=== PATIENT | female | born 1980 | race Caucasian/White ===

== ENCOUNTER → 2016-08-03 | Outpatient (CLI) | payer BC ==
[2016-08-03 10:36] LABS: Creatine Kinase MB 0.8 ng/mL (0.0-2.4); Troponin I <0.012 ng/mL (0.000-0.034)
== END | disposition home or self-care (01) ==
LOC: LABWHC1 09:35
PROVIDERS: ATTEND Physician Assistant
DX: R07.89 Other chest pain (principal)
CPT/HCPCS: 36415; 82550; 82553; 84484

== ENCOUNTER → 2017-04-27 | Outpatient (CLI) | payer BC ==
--- NOTE | 2017-04-28 07:09 | US ---
EXAMINATION TYPE: US thyroid st tissue head/neck DATE OF EXAM: 04/27/2017 COMPARISON: US of 2014 and 2013 CLINICAL HISTORY: E04.2 multinodular goiter. GLAND SIZE: Right Lobe: 5.1 x 1.9 x 1.6 cm Overall Parenchyma: heterogenous Left Lobe: 5.1 x 1.7 x 1.5 cm Overall Parenchyma: heterogeneous Isthmus Thickness: 0.6 cm NODULES RIGHT: # of nodules measured on right: 1 1. 1.4 X 0.8 x 1.1 cm isoechoic solid nodule at the mid pole with well-defined margins; . This nod ule is wider than tall and shows intranodular vascularity. Prior size: 1.4 x 1.0 x 1.0 cm LEFT: # of nodules measured on left: 0 ISTHMUS: # of nodules measured in the isthmus: 0 Bilateral neck scanned, no evidence of lymphadenopathy. There is diffuse glandular heterogeneity and hypervascularity. IMPRESSION: Findings again suggestive of uninodular thyroid goiter with stability of the 1.4 cm right isoechoic t hyroid nodule dating back to 2013. This can be considered benign. Hypervascularity could also relate to thyroiditis. Correlate with serum laboratory values.
== END | disposition home or self-care (01) ==
LOC: RADUSWWP 16:47
PROVIDERS: ATTEND Family Medicine
DX: E04.1 Nontoxic single thyroid nodule (principal)
CPT/HCPCS: 76536

== ENCOUNTER → 2018-03-18 | Outpatient (CLI) | payer BC ==
--- NOTE | 2018-03-18 15:32 | US ---
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 Thyroid nodules, on thyroid meds, history of FNA GLAND SIZE: Right Lobe: 4.9 x 2.1 x 1.8 cm Overall Parenchyma: heterogenous Left Lobe: 5.0 x 1.5 x 1.4 cm Overall Parenchyma: heterogeneous Isthmus Thickness: 0.7 cm NODULES RIGHT: # of nodules measured on right: 1 1. 1.5 X 1.0 x 1.2 cm isoechoic solid nodule at the mid pole with well-defined margins. This nodule is wider than tall and shows intranodular vascularity. Prior size: 1.4 x 0.8 x 1.1 cm LEFT: # of nodules measured on left: 0 ISTHMUS: # of nodules measured in the isthmus: 0 Bilateral neck scanned, no evidence of lymphadenopathy. Heterogeneous thyroid gland measures upper limits of normal in size with stable 1.5 cm isoechoic post erior solid right-sided thyroid nodule. IMPRESSION: Overall stable findings, no new suspicious greater than 1 cm nodules are seen.
== END ==
LOC: RADUSWWP 14:56
PROVIDERS: ATTEND Family Medicine
DX: E04.1 Nontoxic single thyroid nodule (principal)
CPT/HCPCS: 76536

== ENCOUNTER 2018-04-26 13:38 | Emergency (ER) | payer BC ==
[2018-04-26 13:43] VITALS: RESP 18; TEMP 98.6
[2018-04-26] MEDS ORDERED: KETOROLAC 30 MG/ML 1 ML VIAL IVP STA (13:51)
[2018-04-26] MEDS ORDERED: SODIUM CHLORIDE 0.9% 1,000 ML IV STA (13:51)
--- NOTE | 2018-04-26 13:54 | ED ---
Chest Pain HPI - General Chief Complaint: Chest Pain Stated Complaint: Chest Pain,SOB Time Seen by Provider: 04/26/18 13:45 Source: patient, RN notes reviewed Mode of arrival: ambulatory Limitations: no limitations - History of Present Illness Initial Comments: This is a 36-year-old female with a benign past medical history who states she had the onset of coughing last night he started developing some right upper back pain this intense 7/10 severity increases with deep breathing or movements. No overt fevers chills sweats no phlegm production. She does have some shortness of breath with it. She is a nonsmoker she has of a family history of a maternal aunt that had a heart attack in her 30s. No other personal history of that her herself she is a smoker marijuana occasionally she states. Currently no other modifying factors. MD Complaint: chest pain, other - Related Data Home Medications Medication Instructions Recorded Confirmed Ergocalciferol [Vitamin D2] 50,000 unit PO SA 04/26/18 04/26/18 Levothyroxine Sodium [Levoxyl] 100 mcg PO DAILY 04/26/18 04/26/18 Phentermine HCl [Adipex-P] 37.5 mg PO DAILY 04/26/18 04/26/18 Previous Rx's Medication Instructions Recorded Benzonatate [Tessalon Perles] 100 mg PO TID #21 cap 04/26/18 Ibuprofen [Motrin] 600 mg PO Q6HR PRN #20 tab 04/26/18 Allergies Allergy/AdvReac Type Severity Reaction Status Date / Time No Known Allergies Allergy Verified 04/26/18 13:58 Review of Systems ROS Statement: Those systems with pertinent positive or pertinent negative responses have been documented in the HPI. ROS Other: All systems not noted in ROS Statement are negative. Past Medical History Past Medical History: Thyroid Disorder History of Any Multi-Drug Resistant Organisms: None Reported Past Surgical History: Tubal Ligation Past Anesthesia/Blood Transfusion Reactions: No Reported Reaction Smoking Status: Never smoker Past Alcohol Use History: Occasional Past Drug Use History: None Reported - Past Family History Mother Family Medical History: No Reported History General Exam - General Exam Comments Initial Comments: This is a well-developed well-nourished awake alert oriented 3 female Limitations: no limitations General appearance: alert, anxious Head exam: Present: atraumatic, normocephalic, normal inspection Eye exam: Present: normal appearance, PERRL, EOMI. Absent: scleral icterus, conjunctival injection, periorbital swelling ENT exam: Present: normal exam, mucous membranes moist Neck exam: Present: normal inspection, full ROM, other (No stridor JVD or bruits ). Absent: tenderness, meningismus, lymphadenopathy Respiratory exam: Present: normal lung sounds bilaterally. Absent: respiratory distress, wheezes, rales, rhonchi, stridor, chest wall tenderness Cardiovascular Exam: Present: regular rate, normal rhythm, normal heart sounds. Absent: systolic murmur, diastolic murmur, rubs, gallop, clicks GI/Abdominal exam: Present: soft, normal bowel sounds. Absent: distended, tenderness, guarding, rebound, rigid, bruit, pulsatile mass Extremities exam: Present: normal inspection, full ROM, normal capillary refill. Absent: tenderness, pedal edema, joint swelling, calf tenderness Back exam: Present: normal inspection Neurological exam: Present: alert, oriented X3, CN II-XII intact Psychiatric exam: Present: normal affect, normal mood Skin exam: Present: warm, dry, intact, normal color. Absent: rash Course Vital Signs 04/26/18 13:40 Temperature 98.6 F Pulse Rate 89 Respiratory 18 Rate Blood Pressure 126/72 O2 Sat by Pulse 97 Oximetry Chest Pain MDM - MDM Patient is feeling improved after the medication was rendered. The x-rays are negative for acute findings. The current presentation is consistent with musculoskeletal back and chest pain. She also has evidence of bronchitis. She' ll be placed on appropriate medication follow-up with her doctor return when necessary I did discuss this with patient and her . Disposition Clinical Impression: Chest wall syndrome, Bronchitis Disposition: HOME SELF-CARE Condition: Good Instructions: Acute Bronchitis (ED), Thoracic Pain (ED) Prescriptions: Benzonatate [Tessalon Perles] 100 mg PO TID #21 cap Ibuprofen [Motrin] 600 mg PO Q6HR PRN #20 tab PRN Reason: Pain Is patient prescribed a controlled substance at d/c from ED?: No Referrals: Jairo Torre MD [Primary Care Provider] - 1-2 days
[2018-04-26 14:07] LABS: Basophils % (A) 0 %; Eosinophils # (A) 0.8 k/uL (0-0.7); Eosinophils % (A) 6 %; HCT 42.6 % (34.0-46.0); HGB 14.5 gm/dL (11.4-16.0); Lymphocytes # (A) 2.2 k/uL (1.0-4.8); Lymphocytes % (A) 15 %; MCH 30.9 pg (25.0-35.0); MCHC 34.1 g/dL (31.0-37.0); MCV 90.6 fL (80.0-100.0); Mean Platelet Volume 7.5; Monocytes # (A) 0.7 k/uL (0-1.0); Monocytes % (A) 5 %; Neutrophils # (A) 10.6 k/uL (1.3-7.7); Neutrophils % (A) 73 %; Platelet Count 299 k/uL (150-450); RBC 4.71 m/uL (3.80-5.40); RDW 12.9 % (11.5-15.5); WBC 14.7 k/uL (3.8-10.6)
[2018-04-26 14:16] LABS: ALT 24 U/L (9-52); AST 18 U/L (14-36); Albumin 4.9 g/dL (3.5-5.0); Alkaline Phosphatase 84 U/L (38-126); Anion Gap 11 mmol/L; Blood Urea Nitrogen 7 mg/dL (7-17); Calcium 10.4 mg/dL (8.4-10.2); Carbon Dioxide 24 mmol/L (22-30); Chloride 107 mmol/L (98-107); Glucose 107 mg/dL (74-99); Magnesium 1.7 mg/dL (1.6-2.3); Potassium 3.8 mmol/L (3.5-5.1); Sodium 142 mmol/L (137-145); Total Bilirubin 0.7 mg/dL (0.2-1.3)
--- NOTE | 2018-04-26 14:24 | XR ---
EXAMINATION TYPE: XR chest 2V DATE OF EXAM: 04/26/2018 COMPARISON: NONE HISTORY: Chest pain TECHNIQUE: Frontal and lateral views of the chest are obtained. FINDINGS: Heart and mediastinum are normal. Lungs are clear. Diaphragm is normal. Bony thorax appear s normal. There are chest leads. IMPRESSION: Normal chest
[2018-04-26 14:27] LABS: Creatine Kinase 83 U/L (30-135)
[2018-04-26 14:33] LABS: D-Dimer 0.36 mg/L FEU (<0.60); INR 0.9 (<1.2); Partial Thromboplastin Time 25.7 sec (22.0-30.0)
[2018-04-26 14:41] LABS: Creatine Kinase MB 1.8 ng/mL (0.0-2.4); Troponin I <0.012 ng/mL (0.000-0.034)
[2018-04-26] MEDS ORDERED: BENZONATATE 100 MG CAP PO STA (15:16)
[2018-04-26 15:40] VITALS: BP 116/68; PULSE 88
== END 2018-04-26 15:35 | disposition home or self-care (01) ==
LOC: EC 13:38
DX: R07.1 Chest pain on breathing (principal); J40 Bronchitis, not specified as acute or chronic; E07.9 Disorder of thyroid, unspecified; Z79.899 Other long term (current) drug therapy; Z82.49 Family history of ischemic heart disease and other diseases of the circulatory system
CPT/HCPCS: 36415; 93005; 85379; 83880; 80053; 82550; 82553; 83735; 84484; 85025; 85610; 85730; 71046; 99285; 96374; 96361; J1885

== ENCOUNTER → 2019-04-03 | Outpatient (CLI) | payer BC ==
--- NOTE | 2019-04-03 15:58 | US ---
EXAMINATION TYPE: US thyroid st tissue head/neck DATE OF EXAM: 04/03/2019 COMPARISON: Thyroid ultrasound March 18, 2018 and older studies CLINICAL HISTORY: E03.9 hyperthyroidism, R53.83 fatigue. follow up GLAND SIZE: Right Lobe: 4.9 x 1.8 x 1.4 cm Overall Parenchyma: heterogenous Left Lobe: 5.1 x 1.7 x 1.3 cm Overall Parenchyma: heterogeneous Isthmus Thickness: 0.5 cm NODULES RIGHT: # of nodules measured on right: 1 1. 1.1 X 1.0 x 0.9 cm isoechoic solid nodule at the lower pole with well-defined margins; . This n odule is wider than tall and shows intranodular vascularity. Prior size: 1.5 x 1.0 x 1.2 cm LEFT: # of nodules measured on left: 0 ISTHMUS: # of nodules measured in the isthmus: 0 Bilateral neck scanned, no evidence of lymphadenopathy. Heterogeneous normal-sized thyroid with fairly stable right-sided isoechoic nodule. No new nodules ar e seen. IMPRESSION: Overall stable findings.
== END | disposition home or self-care (01) ==
LOC: RADUSWWP 15:31
PROVIDERS: ATTEND Family Medicine
DX: E03.9 Hypothyroidism, unspecified (principal); E04.9 Nontoxic goiter, unspecified
CPT/HCPCS: 76536

== ENCOUNTER → 2020-01-26 | Outpatient (CLI) | payer BC ==
--- NOTE | 2020-01-26 12:13 | US ---
EXAMINATION TYPE: US thyroid st tissue head/neck DATE OF EXAM: 01/26/2020 COMPARISON: 04/03/2019 CLINICAL HISTORY: R22.1 Mass and lump of neck. GLAND SIZE: Right Lobe: 4.1 x 1.2 x 1.3 cm Overall Parenchyma: grossly heterogenous Left Lobe: 5.3 x 1.1 x 1.3 cm Overall Parenchyma: grossly heterogenous Isthmus Thickness: 0.4 cm NODULES RIGHT: # of nodules measured on right: 0. Previous lower pole 1 cm nodule may be present currently estimated at 1.1 x 0.7 cm which is stable. LEFT: # of nodules measured on left: 0 ISTHMUS: # of nodules measured in the isthmus: 0 Bilateral neck scanned, no evidence of lymphadenopathy. Lateral neck scanned for masses, no evident masses. IMPRESSION: Heterogenous thyroid gland. No suspicious interval changes.
== END | disposition home or self-care (01) ==
LOC: RADUSWWP 10:50
PROVIDERS: ATTEND Family Medicine
DX: E07.89 Other specified disorders of thyroid (principal)
CPT/HCPCS: 76536

== ENCOUNTER 2020-03-08 02:55 | Emergency (ER) | payer BC ==
[2020-03-08 03:01] VITALS: PULSE 84; TEMP 98
--- NOTE | 2020-03-08 03:19 | ED ---
Chest Pain HPI - General Chief Complaint: Chest Pain Stated Complaint: Chest Pain Time Seen by Provider: 03/08/20 03:04 Source: patient Mode of arrival: ambulatory Limitations: no limitations - History of Present Illness MD Complaint: chest pain Onset/Timin -: hour(s) Onset: during rest Pain Location: left chest Pain Radiation: none Severity: moderate Quality: sharp Consistency: constant Improves With: nothing Worsens With: inspiration Treatments Prior to Arrival: none - Related Data Home Medications Medication Instructions Recorded Confirmed Ergocalciferol [Vitamin D2] 50,000 unit PO SA 04/26/18 04/26/18 Levothyroxine Sodium [Levoxyl] 100 mcg PO DAILY 04/26/18 04/26/18 Phentermine HCl [Adipex-P] 37.5 mg PO DAILY 04/26/18 04/26/18 Previous Rx's Medication Instructions Recorded Benzonatate [Tessalon Perles] 100 mg PO TID #21 cap 04/26/18 Ibuprofen [Motrin] 600 mg PO Q6HR PRN #20 tab 04/26/18 Naproxen 500 mg PO BID #14 tablet 03/08/20 Allergies Allergy/AdvReac Type Severity Reaction Status Date / Time No Known Allergies Allergy Verified 03/08/20 03:01 Review of Systems ROS Statement: Those systems with pertinent positive or pertinent negative responses have been documented in the HPI. ROS Other: All systems not noted in ROS Statement are negative. Constitutional: Denies: fever, chills Respiratory: Denies: cough, dyspnea, hemoptysis Cardiovascular: Reports: chest pain. Denies: palpitations, orthopnea, edema, syncope Gastrointestinal: Denies: abdominal pain, nausea, vomiting Genitourinary: Denies: dysuria, hematuria Musculoskeletal: Denies: back pain Skin: Denies: rash Neurological: Denies: headache EKG Findings - EKG Results: EKG: interpreted by ERMD, sinus rhythm (rate 76 bpm), normal axis, normal QRS, normal ST/T Past Medical History Past Medical History: Thyroid Disorder History of Any Multi-Drug Resistant Organisms: None Reported Past Surgical History: Tubal Ligation Past Anesthesia/Blood Transfusion Reactions: No Reported Reaction Past Psychological History: No Psychological Hx Reported Smoking Status: Never smoker Past Alcohol Use History: Occasional Past Drug Use History: Marijuana - Past Family History Mother Family Medical History: No Reported History General Exam Limitations: no limitations General appearance: alert, in no apparent distress Head exam: Present: atraumatic, normocephalic Eye exam: Present: normal appearance. Absent: scleral icterus, conjunctival injection ENT exam: Present: normal oropharynx Respiratory exam: Present: normal lung sounds bilaterally. Absent: respiratory distress, wheezes, rales, rhonchi, stridor, chest wall tenderness Cardiovascular Exam: Present: regular rate, normal rhythm, normal heart sounds. Absent: systolic murmur, diastolic murmur, rubs, gallop GI/Abdominal exam: Present: soft. Absent: distended, tenderness, guarding, rebound, rigid, mass Extremities exam: Present: normal inspection, normal capillary refill. Absent: pedal edema, calf tenderness Back exam: Present: normal inspection. Absent: CVA tenderness (R), CVA tenderness (L) Neurological exam: Present: alert Skin exam: Present: warm, dry, intact, normal color. Absent: rash Course Vital Signs 03/08/20 03/08/20 03/08/20 02:57 03:06 04:01 Temperature 98 F Pulse Rate 84 84 Respiratory 18 20 18 Rate Blood Pressure 135/84 105/79 O2 Sat by Pulse 98 97 Oximetry Disposition Clinical Impression: Pleurisy Disposition: HOME SELF-CARE Condition: Good Instructions (If sedation given, give patient instructions): Pleurisy (ED) Prescriptions: Naproxen 500 mg PO BID #14 tablet Is patient prescribed a controlled substance at d/c from ED?: No Referrals: Jairo Torre MD [Primary Care Provider] - 1-2 days
[2020-03-08 03:32] LABS: Basophils # (A) 0.1 k/uL (0-0.2); Basophils % (A) 1 %; Eosinophils # (A) 0.1 k/uL (0-0.7); Eosinophils % (A) 2 %; HCT 41.4 % (34.0-46.0); HGB 13.9 gm/dL (11.4-16.0); Lymphocytes # (A) 2.6 k/uL (1.0-4.8); Lymphocytes % (A) 34 %; MCH 31.4 pg (25.0-35.0); MCHC 33.5 g/dL (31.0-37.0); MCV 93.5 fL (80.0-100.0); Mean Platelet Volume 7.7; Monocytes # (A) 0.5 k/uL (0-1.0); Monocytes % (A) 7 %; Neutrophils # (A) 4.1 k/uL (1.3-7.7); Neutrophils % (A) 54 %; Platelet Count 249 k/uL (150-450); RBC 4.43 m/uL (3.80-5.40); RDW 12.7 % (11.5-15.5); WBC 7.6 k/uL (3.8-10.6)
[2020-03-08 03:41] LABS: ALT 23 U/L (4-34); AST 24 U/L (14-36); African American GFR (CKD) >90 (>60 ml/min/1.73 sqM); Albumin 4.4 g/dL (3.5-5.0); Alkaline Phosphatase 103 U/L (38-126); Anion Gap 7 mmol/L; Blood Urea Nitrogen 15 mg/dL (7-17); Calcium 10.3 mg/dL (8.4-10.2); Carbon Dioxide 23 mmol/L (22-30); Chloride 107 mmol/L (98-107); Glucose 116 mg/dL (74-99); Non-African American GFR(CKD) 80 (>60 ml/min/1.73 sqM); Potassium 4.2 mmol/L (3.5-5.1); Sodium 137 mmol/L (137-145); Total Bilirubin 0.4 mg/dL (0.2-1.3); Total Protein 7.4 g/dL (6.3-8.2)
[2020-03-08 03:51] LABS: D-Dimer 0.3 mg/L FEU (<0.60); INR 0.9 (<1.2); Partial Thromboplastin Time 24.5 sec (22.0-30.0); Prothrombin Time 9.5 sec (9.0-12.0)
--- NOTE | 2020-03-08 03:55 | XR ---
EXAM: XR Chest, 2 Views CLINICAL HISTORY: ITS.REASON XR Reason: Chest Pain TECHNIQUE: Frontal and lateral views of the chest. COMPARISON: 04/26/2018 FINDINGS: Lungs: No consolidation or mass. Pleural space: No effusion. Heart: No cardiomegaly. Bones/joints: No acute findings. IMPRESSION: No acute cardiopulmonary process.
[2020-03-08 04:14] VITALS: BP 105/79; RESP 18
== END 2020-03-08 04:28 | disposition home or self-care (01) ==
LOC: EC 02:55
DX: R09.1 Pleurisy (principal); E07.9 Disorder of thyroid, unspecified; Z79.890 Hormone replacement therapy
CPT/HCPCS: 36415; 71046; 80053; 83735; 84443; 84484; 85025; 85379; 85610; 85730; 93005; 99285

== ENCOUNTER → 2020-08-08 | Outpatient (CLI) | payer BC ==
--- NOTE | 2020-08-08 11:01 | ECHOF ---
Referral Reason:R07.89 Chest pain MEASUREMENTS -------- HEIGHT: 162.6 cm WEIGHT: 77.1 kg BP: 106/60 IVSd: 0.9 cm (0.6 - 1.1) LVIDd: 4.5 cm (3.9 - 5.3) LVPWd: 0.8 cm (0.6 - 1.1) EDV(Teich): 93 ml IVSs: 1.4 cm LVIDs: 2.8 cm LVPWs: 1.4 cm %IVS Thck: 53 % ESV(Teich): 30 ml EF(Teich): 68 % %FS: 38 % SV(Teich): 63 ml LA Diam: 3.0 cm (2.7 - 3.8) RVIDd: 2.8 cm (< 3.3) LALs A4C: 4.9 cm LAAs A4C: 14.4 cm LAESV A-L A4C: 36 ml LAESV MOD A4C: 32 ml LALs A2C: 5.3 cm LAAs A2C: 15.9 cm LAESV A-L A2C: 40 ml LAESV MOD A2C: 38 ml LAESV(A-L): 40 ml LAESV Index (A-L): 21.73 ml/m Ao Diam: 3.0 cm (2.0 - 3.7) AV Cusp: 2.2 cm (1.5 - 2.6) EPSS: 0.5 cm MV E Willem: 0.88 m/s MV DecT: 235 ms MV Dec Dawes: 3.8 m/s MV A Willem: 0.68 m/s MV E/A Ratio: 1.30 MV PHT: 68 ms AV Vmax: 1.32 m/s AV maxP.92 mmHg TR Vmax: 2.27 m/s TR maxP.69 mmHg RAP: 5.00 mmHg RVSP: 25.69 mmHg MV EF SLOPE: 100.30 mm/s (70 - 150) MV EXCURSION: 15.79 mm (> 18.000) FINDINGS -------- Sinus rhythm. This was a technically good study. The left ventricular size is normal. Left ventricular wall thickness is normal. Overall left vent ricular systolic function is normal with, an EF between 60 - 65 %. The right ventricle is normal in size. Normal LA size by volume 22+/-6 ml/m2. The right atrium is normal in size. Interatrial and interventricular septum intact. The aortic valve is trileaflet, and appears structurally normal. No aortic stenosis or regurgitation. Mild mitral regurgitation is present. Mild tricuspid regurgitation present. Right ventricular systolic pressure is normal at < 35 mmHg. There is no pulmonic regurgitation present. The aortic root size is normal. Normal inferior vena cava with normal inspiratory collapse consistent with estimated right atrial pre ssure of 5 mmHg. There is no pericardial effusion. CONCLUSIONS -------- 1. The left ventricular size is normal. 2. Left ventricular wall thickness is normal. 3. Overall left ventricular systolic function is normal with, an EF between 60 - 65 %. 4. The aortic valve is trileaflet, and appears structurally normal. No aortic stenosis or regurgitati on. 5. Mild mitral regurgitation is present. 6. Mild tricuspid regurgitation present. 7. There is no pericardial effusion. RETAIL COORDINATOR: Sofi Guadalupe RDCS
== END | disposition home or self-care (01) ==
LOC: RADECHMAIN 08:31
PROVIDERS: ATTEND Family Medicine
DX: I08.1 Rheumatic disorders of both mitral and tricuspid valves (principal)
CPT/HCPCS: 93306

== ENCOUNTER → 2020-08-09 | Outpatient (CLI) | payer BC ==
--- NOTE | 2020-08-10 13:31 | CT ---
EXAMINATION TYPE: CT abdomen pelvis wo con DATE OF EXAM: 08/09/2020 COMPARISON: None INDICATION: Pain under Lt rib cage DLP: 452.8 mGycm, Automated exposure control for dose reduction was used. CONTRAST: 0 mL of Isovue 300. Study performed without Oral Contrast TECHNIQUE: Axial images were obtained from above the diaphragm to the pubic rami in the axial plane a t 5 mm thick sections. Reconstructed images are reviewed on the computer in the coronal plane. FINDINGS: Limited CT sections are obtained the lung bases. The lung bases are clear. CT ABDOMEN: Liver: Normal Spleen: Normal Pancreas: Fatty infiltrated Adrenal glands: The adrenal glands are normal. Gallbladder: Normal Kidneys: No masses are evident. No hydronephrosis is present. No cysts are present. No renal stone s are evident. Aorta: Normal Inferior vena cava: Normal. CT PELVIS: Navel piercing is in the midline. Minimal free fluid is within the pelvis. Loops of bowel within the abdomen and pelvis are normal. Study is lateral contrast limiting bowel evaluation. Appendix: Normal as visualized. Urinary bladder: Normal. Genitourinary structures: Uterus is normal. Ovaries appear normal. Osseous structures: No suspicious lytic or sclerotic lesions. IMPRESSIONS: 1. Mild free fluid within the pelvis may be physiologic. 2. No suspicious acute changes
== END | disposition home or self-care (01) ==
LOC: RADCTMAIN 08:19
PROVIDERS: ATTEND Family Medicine
DX: R10.9 Unspecified abdominal pain (principal)
CPT/HCPCS: 74176

== ENCOUNTER → 2020-08-23 | Outpatient (CLI) | payer BC ==
--- NOTE | 2020-08-23 13:39 | CT ---
EXAMINATION TYPE: CT chest w con DATE OF EXAM: 08/23/2020 COMPARISON: None HISTORY: Diffuse chest pain on and off x [address] DLP: 302.2 mGycm Automated exposure control for dose reduction was used. CONTRAST: CT scan of the chest is performed with IV Contrast, patient injected with 100 mL of Isovue M300. FINDINGS: LUNGS: The lungs are grossly clear, there is no concerning parenchymal mass or nodule identified. T here is no pleural effusion or pneumothorax seen. The tracheobronchial tree is patent. MEDIASTINUM: There are no greater than 1 cm hilar or mediastinal lymph nodes. No pericardial effusi on is seen. Thoracic aorta is of normal caliber. The heart is not enlarged. UPPER ABDOMEN: No significant abnormality appreciated. OTHER: No additional significant abnormality is seen. IMPRESSION: No significant abnormality seen to account for the patient's symptoms. Correlate clinically
== END | disposition home or self-care (01) ==
LOC: RADCTMAIN 12:30
PROVIDERS: ATTEND Family Medicine
DX: R07.9 Chest pain, unspecified (principal)
CPT/HCPCS: 71260; Q9967

== ENCOUNTER → 2020-09-13 | Outpatient (CLI) | payer BC ==
--- NOTE | 2020-09-13 11:40 | NM ---
EXAMINATION TYPE: NM stress cardiolite complete DATE OF EXAM: 09/13/2020 COMPARISON: NONE HISTORY: Precordial chest pain and abnormal EKG TECHNIQUE: After the intravenous administration of 9.3 mCi Tc 99m Sestamibi - Rest images obtained 4 5 minutes post injection. The patient exercised using a LUIS protocol and 1 minute prior to peak e xercise was injected with 25.2 mCi Tc 99m Sestamibi - Stress images obtained 15 minutes post injectio n. FINDINGS: Targeted heart rate was achieved during performance of the study. Review of stress and rest SPECT keri ges demonstrates decreased perfusion involving the anterior wall: Specimen imaging. Stress-induced is chemia is not excluded. Gated analysis shows normal wall motion with an estimated left ventricular ej ection fraction of 62 %. IMPRESSION: I cannot exclude stress-induced ischemia anterior wall.
--- NOTE | 2020-09-13 12:15 | P.STRESS ---
- Stress Test Note Stress Test Results/Findings: Exam Performed: NM stress cardiolite complete Exam Date: 09/13/20 Reason for Exam: CHEST PAIN Height: 5 ft 4 in Weight: 77.3 kg Protocol: CARDIOLITE LUIS Stage: 4 Duration of Exercise: 11:19 MINUTES Resting Heart Rate: 70 Resting Blood Pressure: 113/82 Maximum Achieved Heart Rate: 162 Maximum Achieved Blood Pressure: 152/80 85% PMHR: 151 100% PMHR: 178 METS: 12.1 Technologist Comment: Stress Test Results/Findings: This is a 40-year-old female with history of chest pain being evaluated for cardiac status. Stress data: Baseline EKG showed sinus rhythm with QRS DURATION. Blood pressure at rest is 113/82 with a pulse rate of 70. Patient walked on the Luis protocol for about 11 minutes and 19 seconds achieving a maximum heart rate of 162 with a blood pressure 150/80. EKGs taken during and after the exercise did not reveal any significant changes from the baseline. Patient did not experience any chest pain. Final impression: #1. Excellent exercise capacity #2. Negative stress test #3. Patient did not experience any chest pain #4. No arrhythmias noted. #5. Report on the nuclear images to be given by the radiologist.
== END | disposition home or self-care (01) ==
LOC: RADNMMAIN 07:57
PROVIDERS: ATTEND Family Medicine
DX: R94.31 Abnormal electrocardiogram [ECG] [EKG] (principal)
CPT/HCPCS: 93017; 78452; A9500

== ENCOUNTER → 2020-09-27 | Outpatient (CLI) | payer BC ==
[2020-09-27 14:04] LABS: HCT 38.1 % (34.0-46.0); HGB 13.1 gm/dL (11.4-16.0); MCH 31.4 pg (25.0-35.0); MCHC 34.4 g/dL (31.0-37.0); MCV 91.5 fL (80.0-100.0); Platelet Count 214 k/uL (150-450); RBC 4.16 m/uL (3.80-5.40); RDW 13.1 % (11.5-15.5); WBC 6.3 k/uL (3.8-10.6)
[2020-09-27 14:15] LABS: Potassium 4.6 mmol/L (3.5-5.1)
== END | disposition home or self-care (01) ==
LOC: LABPAT 13:24
PROVIDERS: ATTEND Internal Medicine Cardiovascular Disease
DX: Z01.812 Encounter for preprocedural laboratory examination (principal); R07.2 Precordial pain
CPT/HCPCS: 80051; 82565; 84520; 85027

== ENCOUNTER → 2021-02-03 | Outpatient (CLI) | payer BC ==
--- NOTE | 2021-02-03 21:44 | US ---
EXAMINATION TYPE: US thyroid st tissue head/neck DATE OF EXAM: 02/03/2021 COMPARISON: NONE CLINICAL HISTORY: E04.2 Nontoxic multinodular goiter. Hypothyroid, on meds for 3 decades GLAND SIZE: Right Lobe: 4.1 x 1.1 x 1.6 cm Overall Parenchyma: heterogenous Left Lobe: 4.7 x 1.3 x 1.4 cm Overall Parenchyma: heterogeneous Isthmus Thickness: 0.6 cm NODULES RIGHT: # of nodules measured on right: 0 - diffusely heterogeneous LEFT: # of nodules measured on left: 0 - diffusely heterogeneous ISTHMUS: # of nodules measured in the isthmus: 0 Bilateral neck scanned, no evidence of lymphadenopathy. Markedly heterogeneous and lobulated but normal sized thyroid gland redemonstrated without discrete w orrisome new suspicious nodule. IMPRESSION: As above. No significant change from most recent study.
== END | disposition home or self-care (01) ==
LOC: RADUSWWP 16:09
PROVIDERS: ATTEND Family Medicine
DX: E04.2 Nontoxic multinodular goiter (principal)
CPT/HCPCS: 76536

== ENCOUNTER → 2021-08-28 | Outpatient (CLI) | payer BC ==
--- NOTE | 2021-08-28 16:43 | US ---
EXAMINATION TYPE: US thyroid st tissue head/neck DATE OF EXAM: 08/28/2021 COMPARISON: Prior thyroid ultrasound FEBRUARY 03, 2021 CLINICAL HISTORY: E04.1 SINGLE THYROID NODULE. GLAND SIZE: Right Lobe: 4.8 x 1.7 x 1.1 cm Overall Parenchyma: grossly heterogeneous Left Lobe: 4.8 x 1.4 x 1.3 cm Overall Parenchyma: grossly heterogeneous Isthmus Thickness: 0.5 cm NODULES RIGHT: # of nodules measured on right: 0 LEFT: # of nodules measured on left: 1 1. 0.5 X 0.3 x 0.5 cm, lower , solid or almost completely solid, hyperechoic nodule, which is wider t carter tall, with smooth margins, without echogenic foci. Not measured previous ISTHMUS: # of nodules measured in the isthmus: 0 Bilateral neck scanned, no evidence of lymphadenopathy. Markedly heterogeneous but normal sized thyroid gland redemonstrated. Incidental 5 mm hyperechoic nod ule in the left thyroid posteriorly marked by the technologist IMPRESSION: As above.
== END | disposition home or self-care (01) ==
LOC: RADUSWWP 16:15
PROVIDERS: ATTEND Family Medicine
DX: E04.1 Nontoxic single thyroid nodule (principal)
CPT/HCPCS: 76536

== ENCOUNTER → 2022-02-27 | Outpatient (CLI) | payer BC ==
--- NOTE | 2022-03-01 15:13 | CT ---
EXAMINATION TYPE: CT ChestAbdPelvis w con DATE OF EXAM: 02/27/2022 INDICATION: LEFT UPPER QUADRANT PAIN COMPARISON: 08/23/2020, 08/09/2020 CT DLP: 724.2 mGycm CONTRAST: Performed with Oral Contrast and with IV Contrast, patient injected with 70ml mL of Isovue 300. TECHNIQUE: Axial images at 5 mm thick sections. Reconstructed images in the coronal plane. Delayed images through the kidneys. FINDINGS: CT CHEST: Portion of the thyroid visualized is normal. No suspicious lung nodules or focal infiltrates are present. No enlarged mediastinal or hilar adenopathy is evident. The ascending aorta diameter at the level of the main pulmonary artery is 2.9 cm. The main pulmonary artery diameter at the bifurcation is 2.[address] ABDOMEN: Liver: Normal Spleen: Normal Pancreas: Normal Adrenal glands: The adrenal glands are normal. Gallbladder: Normal Kidneys: No masses are evident. No hydronephrosis is present. No cysts are present. Delayed images were obtained through the kidneys, which remain unremarkable. Aorta: Normal Inferior vena cava: Normal. CT PELVIS: Loops of bowel within the abdomen and pelvis are normal. There are loops of bowel which are incom pletely distended or lack oral contrast limiting their evaluation. Appendix: Normal as visualized. Urinary bladder: Normal. Genitourinary structures: Uterus appears unremarkable. Adnexa are normal. Osseous structures: No suspicious lytic or sclerotic lesions. There is a sclerotic area with smooth b orders within the lateral right pubic symphysis. This was present 2020. IMPRESSIONS: 1. No suspicious changes to account for left upper quadrant pain.
== END | disposition home or self-care (01) ==
LOC: RADCTMAIN 14:28
PROVIDERS: ATTEND Family Medicine
DX: R10.12 Left upper quadrant pain (principal)
CPT/HCPCS: 71260; 74177; Q9967

== ENCOUNTER 2022-05-22 09:49 | Day surgery (SDC) | payer BC ==
[2022-05-21 09:45] VITALS: BMI 23.6
[~2022-05-22 09:49] MED LIST: LACTATED RINGERS 1,000 ML IV SCH
[2022-05-22 10:10] VITALS: TEMP 97.9
[2022-05-22] MEDS ORDERED: PROPOFOL 10 MG/ML 20 ML VIAL IV ONE (11:46)
--- NOTE | 2022-05-22 11:59 | P.PCN ---
Date of Procedure: 05/22/22 Procedure(s) Performed: BRIEF HISTORY: Patient is a 42-year-old pleasant white female scheduled for an elective colonoscopy as a part of evaluation of change in bowel habits and intermittent rectal bleeding for the last 6 months duration. PROCEDURE PERFORMED: Colonoscopy. PREOPERATIVE DIAGNOSIS: Change in bowel habits and intermittent rectal bleeding. IV sedation per Anesthesia. PROCEDURE: After informed consent was obtained, the patient, was brought into the endoscopy unit. IV sedation was administered by Anesthesia under continuous monitoring. Digital rectal examination was normal. Initially the Olympus CF-160 flexible video colonoscope was then inserted in the rectum, gradually advanced i nto the cecum without any difficulty. Careful examination was performed as the scope was gradually being withdrawn. Ileocecal valve and the appendiceal orifice were visualized and appeared normal. Prep was excellent. Mucosa of the cecum, ascending colon, transverse colon, descending colon, sigmoid colon, and rectum appeared normal. Retroflexion was performed in the rectum and no lesions were seen. The patient tolerated the procedure well. IMPRESSION: Normal-appearing colon from rectum to cecum with no evidence of colorectal neoplasia . RECOMMENDATIONS: Findings of this examination were discussed with the patient as well as a family. She was advised to have a repeat screening colonoscopy in 10 years. In the meantime recommended a high-fiber diet and fiber supplements a regular basis.
[2022-05-22 12:26] VITALS: BP 113/70; PULSE 77; RESP 20
== END 2022-05-22 12:31 | disposition home or self-care (01) ==
LOC: ORWHC2ENDO 09:49
PROVIDERS: ATTEND Internal Medicine Gastroenterology
DX: K62.5 Hemorrhage of anus and rectum (principal); F17.200 Nicotine dependence, unspecified, uncomplicated; F12.20 Cannabis dependence, uncomplicated; E03.9 Hypothyroidism, unspecified; Z79.890 Hormone replacement therapy; K21.9 Gastro-esophageal reflux disease without esophagitis; Z79.83 Long term (current) use of bisphosphonates; Z98.51 Tubal ligation status
CPT/HCPCS: 81025; 45378; J2704